=== PATIENT | female | born 1970 | race American Indian/Alaskan Native ===

== ENCOUNTER 2019-03-18 08:11 | Emergency (ER) | payer SELFPAY ==
[2019-03-18 08:23] VITALS: BP 98/54
[2019-03-18 09:05] LABS: Basophils % (Auto) 0.6 % (0.0-1.8); Eosinophils % (Auto) 0.4 % (0.0-4.3); Hematocrit 27.3 % (30.3-42.9); Hemoglobin 8.2 gm/dl (10.1-14.3); Lymphocytes # (Auto) 1.2 K/mm3 (1.2-5.4); Lymphocytes % (Auto) 37.7 % (13.4-35.0); Mean Corpuscular HGB Conc 30 % (30-34); Mean Corpuscular Volume 67 fl (79-97); Monocytes # (Auto) 0.3 K/mm3 (0.0-0.8); Platelet Count 497 K/mm3 (140-440); Red Blood Count 4.09 M/mm3 (3.65-5.03); Red Cell Distribution Width 18.3 % (13.2-15.2)
[2019-03-18 09:17] LABS: Alanine Aminotransferase 8 units/L (7-56); Albumin 4.3 g/dL (3.9-5); BUN/Creatinine Ratio 11; Blood Urea Nitrogen 8 mg/dL (7-17); Hemolysis Index 0
[2019-03-18] MEDS ORDERED: ZOFRAN ODT PO ONE (09:34)
[2019-03-18 09:48] LABS: HCG Qualitative,Urine Negative (Negative)
[2019-03-18 09:50] LABS: Bilirubin,Urine NEG (Negative); Blood,Urine NEG (Negative); Color,Urine Colorless (Yellow); Protein,Urine <15 mg/dL mg/dL (Negative); Urobilinogen,Urine < 2.0 mg/dL (<2.0)
--- NOTE | 2019-03-18 09:58 | Emergency Department Report ---
ED Dizziness HPI - General Chief Complaint: Dizziness Stated Complaint: DIZZINESS/LIGHTHEADED/N/W Time Seen by Provider: 03/18/19 09:04 Source: patient Mode of arrival: Ambulatory Limitations: No Limitations - History of Present Illness Initial Comments: This is a 49year-old female who presents to ED complaining of onset episode of dizziness yesterday with some nausea. She says initially symptoms started on Tuesday with her nausea and slight dizziness. She states there is intermittent throughout the day. She denies any fever, chills, vomiting, diarrhea, chest pain, shortness of breath, headache, blurry vision. Patient states the symptoms resolved. MD Complaint: dizziness Timing: sudden onset Description: "room spinning", off-balance History of Same: No History of Trauma: No Severity: mild Worsens With: nothing Associated Symptoms: denies: chest pain, confusion, cough, diaphoresis, fever/chills, syncope - Related Data Previous Rx's Medication Instructions Recorded Last Taken Type Lisinopril/Hydrochlorothiazide 1 each PO QDAY #30 tablet 12/04/14 05/30/16 Rx [Zestoretic 10-12.5 mg] traMADol [Ultram 50 MG tab] 50 mg PO Q6HR PRN #14 tablet 05/31/16 Unknown Rx Cyclobenzaprine HCl [Flexeril 5 MG 5 mg PO TID PRN #21 tab 09/23/18 Unknown Rx TAB] Naproxen [Naprosyn] 500 mg PO BID #14 tablet 09/23/18 Unknown Rx Meclizine [Antivert] 25 mg PO BID PRN #20 tablet 03/18/19 Unknown Rx Allergies Allergy/AdvReac Type Severity Reaction Status Date / Time codeine Allergy Vomiting Verified 05/30/16 21:27 ED Review of Systems ROS: Stated complaint: DIZZINESS/LIGHTHEADED/N/W Other details as noted in HPI Comment: All other systems reviewed and negative ED Past Medical Hx - Past Medical History Previous Medical History?: Yes Hx Hypertension: Yes Hx Psychiatric Treatment: Yes (bipolar) Additional medical history: chronic back pain p [facility] 2007 - Surgical History Past Surgical History?: Yes Additional Surgical History: tubal ligation - Social History Smoking Status: Light Tobacco Smoker Substance Use Type: Alcohol - Medications Home Medications: Home Medications Medication Instructions Recorded Confirmed Last Taken Type Lisinopril/Hydrochlorothiazide 1 each PO QDAY #30 tablet 12/04/14 05/31/16 05/30/16 Rx [Zestoretic 10-12.5 mg] traMADol [Ultram 50 MG tab] 50 mg PO Q6HR PRN #14 tablet 05/31/16 Unknown Rx Cyclobenzaprine HCl [Flexeril 5 MG 5 mg PO TID PRN #21 tab 09/23/18 Unknown Rx TAB] Naproxen [Naprosyn] 500 mg PO BID #14 tablet 09/23/18 Unknown Rx Meclizine [Antivert] 25 mg PO BID PRN #20 tablet 03/18/19 Unknown Rx ED Physical Exam - General Limitations: No Limitations General appearance: alert, in no apparent distress - Head Head exam: Present: atraumatic, normocephalic - Eye Eye exam: Present: normal appearance - ENT ENT exam: Present: normal exam, mucous membranes moist, TM's normal bilaterally - Expanded ENT Exam Expanded TM/Canal exam: Effusion: Right TM, Left TM - Neck Neck exam: Present: normal inspection, full ROM. Absent: tenderness - Respiratory Respiratory exam: Present: normal lung sounds bilaterally. Absent: respiratory distress - Cardiovascular Cardiovascular Exam: Present: regular rate, normal rhythm. Absent: systolic murmur, diastolic murmur, rubs, gallop - GI/Abdominal GI/Abdominal exam: Present: soft, normal bowel sounds - Extremities Exam Extremities exam: Present: normal inspection - Back Exam Back exam: Present: normal inspection - Neurological Exam Neurological exam: Present: alert, oriented X3 - Psychiatric Psychiatric exam: Present: normal affect, normal mood - Skin Skin exam: Present: warm, dry, intact, normal color. Absent: rash ED Course Vital Signs 03/18/19 08:21 Temperature 99.2 F Pulse Rate 91 H Respiratory 16 Rate Blood Pressure 98/54 O2 Sat by Pulse 100 Oximetry ED Medical Decision Making - Lab Data Result diagrams: 03/18/19 08:41 03/18/19 08:41 - Medical Decision Making 49-year-old female presents with nonspecific dizziness that resolved. Discussed the patient just may be from vertigo Discussed the patient and take Sudafed for sinus allergies. Patient is in no acute distress. She had no neurological deficit. Discussed labs with the patient. Discussed the patient on iron supplements that she is anemiic vital signs are normal Critical care attestation.: If time is entered above; I have spent that time in minutes in the direct care of this critically ill patient, excluding procedure time. ED Disposition Clinical Impression: Dizziness, nonspecific Disposition: DC-01 TO HOME OR SELFCARE Is pt being admited?: No Does the pt Need Aspirin: No Condition: Stable Instructions: Dizziness (ED), Vertigo (ED) Additional Instructions: Make sure to follow up with the primary care physician as discussed. Take all your medications as you've been prescribed. If you have any worsening symptoms or develop new symptoms please return to ED immediately. Prescriptions: Meclizine [Antivert] 25 mg PO BID PRN #20 tablet PRN Reason: Vertigo Referrals: [facility] MD EDDI [Primary Care Provider] - 3-5 Days WILNER ZACARIAS MD [Staff Physician] - 3-5 Days Forms: Work/School Release Form(ED) Time of Disposition: 10:42
== END 2019-03-18 10:53 | disposition home or self-care (01) ==
LOC: ED 08:11
DX: R42 Dizziness and giddiness (principal); I10 Essential (primary) hypertension; M54.9 Dorsalgia, unspecified; G89.29 Other chronic pain; Z98.51 Tubal ligation status; Z88.5 Allergy status to narcotic agent
CPT/HCPCS: 36415; 80048; 80053; 81001; 81025; 85025; 93005; 93010; 99283; Q0162

== ENCOUNTER 2019-05-08 07:30 | Emergency (ER) | payer SELFPAY ==
[2019-05-08 07:42] VITALS: BP 125/83
[2019-05-08] MEDS ORDERED: TORADOL IM ONE (09:36)
--- NOTE | 2019-05-08 09:37 | Emergency Department Report ---
ED ENT HPI - General Chief complaint: Sore Throat Stated complaint: L SIDE HEAD PAIN/L EAR RINGING/THROAT PAIN Time Seen by Provider: 05/08/19 09:03 Source: patient Mode of arrival: Ambulatory Limitations: No Limitations - History of Present Illness Initial comments: 49-year-old female presents to ED with 2 day history of left ear pain and sore throat. Patient denies fever, cough. She states her lymph nodes are swollen in neck. MD complaint: sore throat, ear pain -: days(s) (2) Location: L ear, throat Severity: mild Quality: aching Consistency: intermittent Improves with: none Worsens with: swallowing Associated Symptoms: sore throat. denies: fever, cough, discharge from ear - Related Data Previous Rx's Medication Instructions Recorded Last Taken Type Lisinopril/Hydrochlorothiazide 1 each PO QDAY #30 tablet 12/04/14 05/30/16 Rx [Zestoretic 10-12.5 mg] traMADol [Ultram 50 MG tab] 50 mg PO Q6HR PRN #14 tablet 05/31/16 Unknown Rx Cyclobenzaprine HCl [Flexeril 5 MG 5 mg PO TID PRN #21 tab 09/23/18 Unknown Rx TAB] Naproxen [Naprosyn] 500 mg PO BID #14 tablet 09/23/18 Unknown Rx Meclizine [Antivert] 25 mg PO BID PRN #20 tablet 03/18/19 Unknown Rx Naproxen [Naprosyn] 500 mg PO BID #20 tablet 05/08/19 Unknown Rx Allergies Allergy/AdvReac Type Severity Reaction Status Date / Time codeine Allergy Vomiting Verified 05/30/16 21:27 ED Dental HPI - General Chief complaint: Sore Throat Stated complaint: L SIDE HEAD PAIN/L EAR RINGING/THROAT PAIN Time Seen by Provider: 05/08/19 09:03 Source: patient Mode of arrival: Ambulatory Limitations: No Limitations - Related Data Previous Rx's Medication Instructions Recorded Last Taken Type Lisinopril/Hydrochlorothiazide 1 each PO QDAY #30 tablet 12/04/14 05/30/16 Rx [Zestoretic 10-12.5 mg] traMADol [Ultram 50 MG tab] 50 mg PO Q6HR PRN #14 tablet 05/31/16 Unknown Rx Cyclobenzaprine HCl [Flexeril 5 MG 5 mg PO TID PRN #21 tab 09/23/18 Unknown Rx TAB] Naproxen [Naprosyn] 500 mg PO BID #14 tablet 09/23/18 Unknown Rx Meclizine [Antivert] 25 mg PO BID PRN #20 tablet 03/18/19 Unknown Rx Naproxen [Naprosyn] 500 mg PO BID #20 tablet 05/08/19 Unknown Rx Allergies Allergy/AdvReac Type Severity Reaction Status Date / Time codeine Allergy Vomiting Verified 05/30/16 21:27 ED Review of Systems ROS: Stated complaint: L SIDE HEAD PAIN/L EAR RINGING/THROAT PAIN Other details as noted in HPI Comment: All other systems reviewed and negative Constitutional: denies: chills, fever ENT: ear pain, throat pain. denies: congestion Respiratory: denies: cough ED Past Medical Hx - Past Medical History Hx Hypertension: Yes Hx Psychiatric Treatment: Yes (bipolar) Additional medical history: chronic back pain p [facility] 2007 - Surgical History Additional Surgical History: tubal ligation - Social History Smoking Status: Current Every Day Smoker Substance Use Type: Alcohol - Medications Home Medications: Home Medications Medication Instructions Recorded Confirmed Last Taken Type Lisinopril/Hydrochlorothiazide 1 each PO QDAY #30 tablet 12/04/14 05/31/16 05/30/16 Rx [Zestoretic 10-12.5 mg] traMADol [Ultram 50 MG tab] 50 mg PO Q6HR PRN #14 tablet 05/31/16 Unknown Rx Cyclobenzaprine HCl [Flexeril 5 MG 5 mg PO TID PRN #21 tab 09/23/18 Unknown Rx TAB] Naproxen [Naprosyn] 500 mg PO BID #14 tablet 09/23/18 Unknown Rx Meclizine [Antivert] 25 mg PO BID PRN #20 tablet 03/18/19 Unknown Rx Naproxen [Naprosyn] 500 mg PO BID #20 tablet 05/08/19 Unknown Rx ED Physical Exam - General Limitations: No Limitations General appearance: alert, in no apparent distress - Head Head exam: Present: atraumatic, normocephalic - Eye Eye exam: Present: normal appearance, PERRL, EOMI - ENT ENT exam: Present: normal orophraynx, TM's normal bilaterally - Neck Neck exam: Present: normal inspection. Absent: lymphadenopathy - Respiratory Respiratory exam: Present: normal lung sounds bilaterally. Absent: respiratory distress - Cardiovascular Cardiovascular Exam: Present: normal rhythm, tachycardia - GI/Abdominal GI/Abdominal exam: Absent: distended - Extremities Exam Extremities exam: Present: normal inspection - Neurological Exam Neurological exam: Present: alert, oriented X3 - Psychiatric Psychiatric exam: Present: normal affect, normal mood - Skin Skin exam: Present: warm, dry, intact, normal color ED Course Vital Signs 05/08/19 07:39 Temperature 98.7 F Pulse Rate 111 H Respiratory 18 Rate Blood Pressure 125/83 O2 Sat by Pulse 100 Oximetry Critical care attestation.: If time is entered above; I have spent that time in minutes in the direct care of this critically ill patient, excluding procedure time. ED Disposition Clinical Impression: Viral pharyngitis, Otalgia of left ear Disposition: DC-01 TO HOME OR SELFCARE Is pt being admited?: No Condition: Stable Instructions: Pharyngitis (ED) Referrals: DARREN ESTEBAN MD [Primary Care Provider] - 3-5 Days Time of Disposition: 09:37
[2019-05-08] MEDS ORDERED: TORADOL ONE (09:52)
== END 2019-05-08 10:25 | disposition home or self-care (01) ==
LOC: ED 07:30
DX: J02.9 Acute pharyngitis, unspecified (principal); H92.02 Otalgia, left ear; I10 Essential (primary) hypertension; F31.9 Bipolar disorder, unspecified; M54.5 Low back pain; G89.29 Other chronic pain; F17.200 Nicotine dependence, unspecified, uncomplicated; Z88.5 Allergy status to narcotic agent; Z79.899 Other long term (current) drug therapy
CPT/HCPCS: 96372; 99282; J1885

== ENCOUNTER 2019-12-05 07:09 | Emergency (ER) | payer OTHER ==
--- NOTE | 2019-12-05 09:07 | Emergency Department Report ---
ED General Adult HPI - General Chief complaint: Sore Throat Stated complaint: HEMORRHOIDS/THROAT PAIN/COUGH Time Seen by Provider: 12/05/19 08:15 Source: patient Mode of arrival: Ambulatory Limitations: No Limitations - History of Present Illness Initial comments: This is a 49-year-old female with longstanding history of hemorrhoids who presents the ED complaining of rectal pain with bowel movement for the past couple of days. Patient states pain is worsened with bowel movement. Patient also states she noticed some blood on the tissue after wiping after bowel movement. Patient denies rectal bleeding otherwise, abdominal pain, nausea vomiting. Patient states she is used Preparation H with no relief. - Related Data Previous Rx's Medication Instructions Recorded Last Taken Type Lisinopril/Hydrochlorothiazide 1 each PO QDAY #30 tablet 12/04/14 05/30/16 Rx [Zestoretic 10-12.5 mg] traMADoL [Ultram 50 MG tab] 50 mg PO Q6HR PRN #14 tablet 05/31/16 Unknown Rx Cyclobenzaprine HCl [Flexeril 5 MG 5 mg PO TID PRN #21 tab 09/23/18 Unknown Rx TAB] Naproxen [Naprosyn] 500 mg PO BID #14 tablet 09/23/18 Unknown Rx Meclizine [Antivert] 25 mg PO BID PRN #20 tablet 03/18/19 Unknown Rx Naproxen [Naprosyn] 500 mg PO BID #20 tablet 05/08/19 Unknown Rx Docusate Sodium [Colace] 100 mg PO BID PRN #30 capsule 12/05/19 Unknown Rx Hydrocortisone [Anucort-HC SUPPOS] 25 mg RC BID #30 supp.rect 12/05/19 Unknown Rx Allergies Allergy/AdvReac Type Severity Reaction Status Date / Time codeine Allergy Vomiting Verified 05/30/16 21:27 ED Review of Systems ROS: Stated complaint: HEMORRHOIDS/THROAT PAIN/COUGH Other details as noted in HPI Comment: All other systems reviewed and negative ED Past Medical Hx - Past Medical History Previous Medical History?: Yes Hx Hypertension: Yes Hx Psychiatric Treatment: Yes (bipolar) Additional medical history: chronic back pain p [facility] 2007 - Surgical History Past Surgical History?: Yes Additional Surgical History: tubal ligation - Social History Smoking Status: Never Smoker Substance Use Type: None - Medications Home Medications: Home Medications Medication Instructions Recorded Confirmed Last Taken Type Lisinopril/Hydrochlorothiazide 1 each PO QDAY #30 tablet 12/04/14 05/31/16 05/30/16 Rx [Zestoretic 10-12.5 mg] traMADoL [Ultram 50 MG tab] 50 mg PO Q6HR PRN #14 tablet 05/31/16 Unknown Rx Cyclobenzaprine HCl [Flexeril 5 MG 5 mg PO TID PRN #21 tab 09/23/18 Unknown Rx TAB] Naproxen [Naprosyn] 500 mg PO BID #14 tablet 09/23/18 Unknown Rx Meclizine [Antivert] 25 mg PO BID PRN #20 tablet 03/18/19 Unknown Rx Naproxen [Naprosyn] 500 mg PO BID #20 tablet 05/08/19 Unknown Rx Docusate Sodium [Colace] 100 mg PO BID PRN #30 capsule 12/05/19 Unknown Rx Hydrocortisone [Anucort-HC SUPPOS] 25 mg RC BID #30 supp.rect 12/05/19 Unknown Rx ED Physical Exam - General Limitations: No Limitations General appearance: alert, in no apparent distress - Head Head exam: Present: atraumatic, normocephalic - Eye Eye exam: Present: normal appearance - ENT ENT exam: Present: mucous membranes moist - Neck Neck exam: Present: normal inspection - Respiratory Respiratory exam: Present: normal lung sounds bilaterally. Absent: respiratory distress - Cardiovascular Cardiovascular Exam: Present: regular rate, normal rhythm. Absent: systolic murmur, diastolic murmur, rubs, gallop - GI/Abdominal GI/Abdominal exam: Present: soft, normal bowel sounds - Rectal Rectal exam: Present: normal rectal tone, heme (-) stool, hemorrhoids, tenderness, other (45 warts different in size around the anus) - Extremities Exam Extremities exam: Present: normal inspection, full ROM - Back Exam Back exam: Present: normal inspection - Neurological Exam Neurological exam: Present: alert, oriented X3 - Psychiatric Psychiatric exam: Present: normal affect, normal mood - Skin Skin exam: Present: warm, dry, intact, normal color. Absent: rash ED Medical Decision Making - Medical Decision Making This is a 49-year-old female who presents with rectal pain Discussed with patient to follow-up with primary care physician, gynecology and gastro. Discussed with Critical care attestation.: If time is entered above; I have spent that time in minutes in the direct care of this critically ill patient, excluding procedure time. ED Disposition Clinical Impression: Rectal pain, Anal warts, Hemorrhoids Disposition: TO HOME OR SELFCARE Is pt being admited?: No Does the pt Need Aspirin: No Condition: Stable Instructions: Hemorrhoids (ED), Genital Warts (ED) Additional Instructions: Make sure to follow up with the primary care physician as discussed. Take all your medications as you've been prescribed. If you have any worsening symptoms or develop new symptoms please return to ED immediately. Prescriptions: Hydrocortisone [Anucort-HC SUPPOS] 25 mg RC BID #30 supp.rect Docusate Sodium [Colace] 100 mg PO BID PRN #30 capsule PRN Reason: Constipation Referrals: [facility] [Provider Group] - 3-5 Days [facility] [Provider Group] - 3-5 Days Forms: Accompanied Note, Work/School Release Form(ED) Time of Disposition: 09:55
[2019-12-05 10:09] VITALS: BP 136/84
== END 2019-12-05 10:08 | disposition home or self-care (01) ==
LOC: ED 07:09
DX: K64.9 Unspecified hemorrhoids (principal); A63.0 Anogenital (venereal) warts; K62.89 Other specified diseases of anus and rectum; R05 Cough; R07.0 Pain in throat; I10 Essential (primary) hypertension; F31.9 Bipolar disorder, unspecified; Z79.899 Other long term (current) drug therapy; Z88.5 Allergy status to narcotic agent; Z98.51 Tubal ligation status
CPT/HCPCS: 99282

== ENCOUNTER 2021-09-07 05:37 | Emergency (ER) | payer OTHER ==
[2021-09-07 06:05] VITALS: BP 184/94
[2021-09-07] MEDS ORDERED: KETOROLAC 60 MG/2 ML INJ IM STA (06:51)
--- NOTE | 2021-09-07 07:02 | Emergency Department Report ---
ED Back Pain/Injury HPI - General Chief Complaint: Back Pain/Injury Stated Complaint: LOWER BACK PAIN Time Seen by Provider: 09/07/21 06:33 Source: patient Limitations: No Limitations - History of Present Illness MD Complaint: back pain -: Gradual (3 to 4 days acute on chronic) Similar Symptoms Previously: No Severity: mild, moderate Quality: burning, sharp, dull Consistency: constant Worsens With: movement Context: unknown Associated Symptoms: difficulty walking. denies: chest pain, numbness, difficulty urinating, diaphoresis, incontinence, fever/chills, headaches, abdominal pain, nausea/vomiting, rash, seizure, shortness of breath, syncope - Related Data Previous Rx's Medication Instructions Recorded Last Taken Type Lisinopril/Hydrochlorothiazide 1 each PO QDAY #30 tablet 12/04/14 05/30/16 Rx [Zestoretic 10-12.5 mg] traMADoL [Ultram 50 MG tab] 50 mg PO Q6HR PRN #14 tablet 05/31/16 Unknown Rx Cyclobenzaprine HCl [Flexeril 5 MG 5 mg PO TID PRN #21 tab 09/23/18 Unknown Rx TAB] Naproxen [Naprosyn] 500 mg PO BID #14 tablet 09/23/18 Unknown Rx Meclizine [Antivert] 25 mg PO BID PRN #20 tablet 03/18/19 Unknown Rx Naproxen [Naprosyn] 500 mg PO BID #20 tablet 05/08/19 Unknown Rx Docusate Sodium [Colace] 100 mg PO BID PRN #30 capsule 12/05/19 Unknown Rx Hydrocortisone [Anucort-HC SUPPOS] 25 mg RC BID #30 supp.rect 12/05/19 Unknown Rx Ketorolac [Toradol] 10 mg PO Q6H PRN #15 tablet 09/07/21 Unknown Rx methOCARBAMOL [Robaxin TAB] 750 mg PO Q8H PRN #14 tablet 09/07/21 Unknown Rx Allergies Allergy/AdvReac Type Severity Reaction Status Date / Time codeine Allergy Vomiting Verified 05/30/16 21:27 ED Review of Systems ROS: Stated complaint: LOWER BACK PAIN Other details as noted in HPI Comment: All other systems reviewed and negative ED Past Medical Hx - Past Medical History Hx Hypertension: Yes Hx Psychiatric Treatment: Yes (bipolar) Additional medical history: chronic back pain p [facility] 2007 - Surgical History Additional Surgical History: tubal ligation - Social History Smoking Status: Never Smoker Substance Use Type: None - Medications Home Medications: Home Medications Medication Instructions Recorded Confirmed Last Taken Type Lisinopril/Hydrochlorothiazide 1 each PO QDAY #30 tablet 12/04/14 05/31/16 05/30/16 Rx [Zestoretic 10-12.5 mg] traMADoL [Ultram 50 MG tab] 50 mg PO Q6HR PRN #14 tablet 05/31/16 Unknown Rx Cyclobenzaprine HCl [Flexeril 5 MG 5 mg PO TID PRN #21 tab 09/23/18 Unknown Rx TAB] Naproxen [Naprosyn] 500 mg PO BID #14 tablet 09/23/18 Unknown Rx Meclizine [Antivert] 25 mg PO BID PRN #20 tablet 03/18/19 Unknown Rx Naproxen [Naprosyn] 500 mg PO BID #20 tablet 05/08/19 Unknown Rx Docusate Sodium [Colace] 100 mg PO BID PRN #30 capsule 12/05/19 Unknown Rx Hydrocortisone [Anucort-HC SUPPOS] 25 mg RC BID #30 supp.rect 12/05/19 Unknown Rx Ketorolac [Toradol] 10 mg PO Q6H PRN #15 tablet 09/07/21 Unknown Rx methOCARBAMOL [Robaxin TAB] 750 mg PO Q8H PRN #14 tablet 09/07/21 Unknown Rx ED Physical Exam - General Limitations: No Limitations General appearance: alert, in no apparent distress - Head Head exam: Present: atraumatic, normocephalic - Eye Eye exam: Present: normal appearance - ENT ENT exam: Present: mucous membranes moist - Neck Neck exam: Present: normal inspection - Respiratory Respiratory exam: Present: normal lung sounds bilaterally. Absent: respiratory distress - Cardiovascular Cardiovascular Exam: Present: regular rate, normal rhythm. Absent: systolic murmur, diastolic murmur, rubs, gallop - GI/Abdominal GI/Abdominal exam: Present: soft, normal bowel sounds - Extremities Exam Extremities exam: Present: normal inspection - Back Exam Back exam: Present: normal inspection, muscle spasm, paraspinal tenderness, other (Tenderness to the paraspinous region with palpation there is midline tenderness noted. Straight leg raise negative and Riccardo's test is negative there is tenderness over the piriformis muscle on the sacroiliac) - Neurological Exam Neurological exam: Present: alert, oriented X3, CN II-XII intact, normal gait, reflexes normal - Psychiatric Psychiatric exam: Present: normal affect, normal mood - Skin Skin exam: Present: warm, dry, intact, normal color. Absent: rash ED Course Vital Signs 09/07/21 09/07/21 05:58 06:57 Temperature 98.2 F Pulse Rate 102 H Respiratory 16 16 Rate Blood Pressure 184/94 [Left] O2 Sat by Pulse 98 Oximetry ED Medical Decision Making - Medical Decision Making Pt presents the emergency department complaining of back pain most consistent with sciatic back Pain Most Consistent with Strain/Contusion. Differential Diagnosis Includes Lumbar Go Versus Musculoskeletal Spasm, Strain Versus Sciatica. No Back Pain Red Flags on History or Physical. Presentation Not Consistent with Malignancy, Fracture, Cauda Equina, Abdominal Aortic Aneurysm, Viscus Perforation, Pulmonary Embolism, Renal Colic, Pyelonephritis. Patient reports no B symptoms, trauma trauma, incontinence, saddle anesthesia, distal weakness, urinary symptoms and is a febrile. Critical care attestation.: If time is entered above; I have spent that time in minutes in the direct care of this critically ill patient, excluding procedure time. ED Disposition Clinical Impression: Sciatica, Lumbago Disposition: 01 HOME / SELF CARE / HOMELESS Is pt being admited?: No Does the pt Need Aspirin: No Condition: Stable Instructions: Radicular Pain, Acute Back Pain, Adult, Sciatica, Sciatica Rehab- [facility] Prescriptions: methOCARBAMOL [Robaxin TAB] 750 mg PO Q8H PRN #14 tablet PRN Reason: Pain, Moderate (4-6) Ketorolac [Toradol] 10 mg PO Q6H PRN #15 tablet PRN Reason: Pain Referrals: [facility] [Provider Group] - 3-5 Days JIMBO MITCHELL MD [Staff Physician] - 3-5 Days
== END 2021-09-07 07:40 | disposition home or self-care (01) ==
LOC: ED 05:37
DX: M54.40 Lumbago with sciatica, unspecified side (principal); F31.9 Bipolar disorder, unspecified; Z98.51 Tubal ligation status; Z88.5 Allergy status to narcotic agent
CPT/HCPCS: 96372; 99281; J1885